=== PATIENT | male | born 1990 | race Caucasian/White ===

== ENCOUNTER → 2020-10-09 | Outpatient (CLI) | payer OTHER ==
[~2020-10-09] MED LIST: ALBU90I INH; ALBU90OI INH; CEPH500 PO; CRUTCH4 USE; CYCL10 PO; HYDACE5 PO; IBUP800; IBUP800 PO; META800 PO; NAPR500 PO; OXYC5; RAMI2.5 PO; SULTRIDS PO
[2020-10-09 19:22] LABS: BASOPHILS PERCENT AUTO 1 % (0-2); EOSINOPHILS ABSOLUTE AUTO 0.09 K/mm3 (0.00-0.68); EOSINOPHILS PERCENT AUTO 1 % (0-6); Hematocrit 45.8 % (37.0-53.0); Hemoglobin 15.6 g/dL (13.5-17.5); IMMATURE GRAN ABSOLUTE AUTO 0.01 K/mm3 (0.00-0.10); IMMATURE GRAN PERCENT AUTO 0 % (0-1); LYMPHOCYTES ABSOLUTE AUTO 2.28 K/mm3 (0.84-5.20); LYMPHOCYTES PERCENT AUTO 31 % (21-46); MONOCYTES ABSOLUTE AUTO 0.55 K/mm3 (0.16-1.47); MONOCYTES PERCENT AUTO 7 % (4-13); Mean Corpuscular HGB 28.9 pg (26.0-34.0); Mean Corpuscular HGB Conc 34.1 g/dL (31.5-36.5); Mean Corpuscular Volume 85 fL (80-100); Mean Platelet Volume 10.7 fL (9.1-12.4); NEUTROPHILS ABSOLUTE AUTO 4.45 K/mm3 (1.96-9.15); NEUTROPHILS PERCENT AUTO 60 % (41-73); Platelet Count 247 K/mm3 (150-400); RDW Coefficient Variation 11.9 % (11.7-14.2); RDW Standard Deviation 36.2 fL (35.1-46.3); White Blood Cell Count 7.48 K/mm3 (4.00-11.30)
[2020-10-09 19:52] LABS: Creatinine, Urine Random 92.4 mg/dL (27.00-270.00); Protein, Urine Random 14.5 mg/dL (0.0-11.9); Protein/Creat Ratio, Ur Random 0.2
[2020-10-09 20:20] LABS: Alanine Aminotransfer (ALT/SGP 70 U/L (12-78); Albumin, Blood 4.5 g/dL (3.4-5.0); Albumin/Globulin Ratio 1.2 (0.8-1.8); Alk Phos 128 U/L (50-136); Anion Gap 7 mmol/L (6-16); Aspartate Aminotrans (AST/SGOT 34 U/L (12-37); Bilirubin, Total 1.1 mg/dL (0.1-1.0); Blood Urea Nitrogen 9 mg/dL (8-24); Bun/Creatinine Ratio 9.6 (12.0-20.0); CO2, Blood 27 mmol/L (21-32); Calcium, Blood 9.2 mg/dL (8.5-10.1); Chloride, Blood 107 mmol/L (98-108); Creatinine, Blood 0.94 mg/dL (0.60-1.20); Globulin, Blood 3.6 g/dL (2.2-4.0); Glomerular Filtration Rate >60 (60-); Glucose, Blood 92 mg/dL (70-99); Potassium, Blood 3.6 mmol/L (3.5-5.5); Sodium, Blood 141 mmol/L (136-145); Total Protein, Blood 8.1 g/dL (6.4-8.2)
== END | disposition home or self-care (01) ==
LOC: LAB SHORT 15:40 → LAB 15:40
PROVIDERS: Family Medicine
DX: E03.9 Hypothyroidism, unspecified (principal); E66.9 Obesity, unspecified; I10 Essential (primary) hypertension; F31.81 Bipolar II disorder
CPT/HCPCS: 80053; 82570; 84156; 84443; 85025

== ENCOUNTER 2021-09-27 06:37 | Day surgery (SDC) | payer OTHER ==
[~2021-09-27] VITALS: Ht 185.4 cm; Wt 87.6 kg
[2021-09-27] MEDS ORDERED: HYDR1TAB94 PO (07:34)
--- NOTE | 2021-09-27 11:56 | NUR ---
09/27/21 1156 Bart Bojorquez VITALIssac WNL AT TIME OF DISCHARGE. UNABLE TO PRINT STRIP. [id number]
--- NOTE | 2021-09-27 12:45 | NUR ---
09/27/21 1245 AXEL BARRAGAN TIME OUT COMPLETED PRIOR TO NERVE BLOCK. NERVE BLOCK COMPLETED BY DR. AGUILERA.
== END 2021-09-27 11:15 | disposition home or self-care (01) ==
LOC: ORSCSDS 06:37
PROVIDERS: Orthopaedic Surgery
PROC: 0PSB04Z Reposition Left Clavicle with Internal Fixation Device, Open Approach (ICD-10-PCS; principal; 2021-09-27 08:00)
DX: S42.022A Displaced fracture of shaft of left clavicle, initial encounter for closed fracture (principal); V86.59XA Driver of other special all-terrain or other off-road motor vehicle injured in nontraffic accident, initial encounter; I10 Essential (primary) hypertension; F41.8 Other specified anxiety disorders; U07.1 COVID-19
CPT/HCPCS: 73000; 93005; 93010; A9270; C1713; J0690; J1100; J1885; J2250; J2405; J2704; J2795; J3010; J7120